=== PATIENT | female | born 1950 | race Caucasian/White ===

== ENCOUNTER 2021-03-06 08:32 | Emergency (ER) | payer MEDICARE ==
[2021-03-06] MEDS ORDERED: Proparacaine 0.5% Ophth Soln 15 ML Bottle EYEBOTH STA (09:06)
--- NOTE | 2021-03-06 09:26 | EDM.PDOC ---
ED HPI GENERAL MEDICAL PROBLEM - General Chief Complaint: Eye Problems Stated Complaint: POKED EYE WITH SCISSORS LAST NIGHT Time Seen by Provider: 03/06/21 09:22 Source of Information: Reports: Patient, RN Notes Reviewed History Limitations: Reports: No Limitations - History of Present Illness INITIAL COMMENTS - FREE TEXT/NARRATIVE: 8-year-old female presents emergency department day complaint, she may have injured herself with scissors while she was cutting this happened 16 hours prior - Related Data Allergies Allergy/AdvReac Type Severity Reaction Status Date / Time sulfamethoxazole Allergy Unknown Cannot Verified 03/06/21 08:51 [From Bactrim] Remember trimethoprim [From Bactrim] Allergy Unknown Cannot Verified 03/06/21 08:51 Remember Home Meds: Home Meds Chlorthalidone 25 mg PO DAILY 03/06/21 [History] Metoprolol Succinate [Toprol XL] 25 mg PO DAILY 03/06/21 [History] lisinopriL [Lisinopril] 80 mg PO DAILY 03/06/21 [History] Past Medical History Cardiovascular History: Reports: Hypertension [employer] History: Reports: Musculoskeletal History: Reports: Fracture Endocrine/Metabolic History: Reports: Hypothyroidism - Past Surgical History Musculoskeletal Surgical History: Reports: Knee Replacement Social & Family History - Tobacco Use Tobacco Use Status *Q: Never Tobacco User ED ROS GENERAL - Review of Systems Review Of Systems: See Below Constitutional: Reports: No Symptoms HEENT: Reports: Eye Discharge, Eye Pain. Denies: Vision Change ED EXAM GENERAL W FULL EYE - Physical Exam Exam: See Below Exam Limited By: No Limitations General Appearance: Alert, WD/WN, No Apparent Distress Eye Exam: Right Eye: Normal Inspection, Left Eye: Conjunctival Injection, Corneal Abrasion, Bilateral Eye: PERRL Eyelids: Bilateral: Normal Appearance Conjunctiva & Sclera: Right: Normal Appearance, Left: Injected Cornea Exam: Left: Corneal Abrasion, Examined with Flourescein Extraocular Movements: Bilateral: Intact Pupils: Normal Accommodation Pupillary Size: Bilateral: 3 mm Pupillary Reaction: Bilateral: Brisk Anterior Chamber: Bilateral: Normal Appearance Course - Vital Signs Last Recorded V/S: Last Vital Signs Temp 97.0 F 03/06/21 08:54 Pulse 77 03/06/21 08:54 Resp 16 03/06/21 09:02 BP 162/88 H 03/06/21 09:02 Pulse Ox 95 03/06/21 08:54 - Orders/Labs/Meds Meds: Medications Discontinued Medications Generic Name Dose Route Start Last Admin Trade Name Lucas PRN Reason Stop Dose Admin Proparacaine HCl 1 ml 03/06/21 09:06 Proparacaine 0.5% Ophth Soln 15 Ml Bottle EYEBOTH 03/06/21 09:07 NOW STA Departure - Departure Time of Disposition: 09:24 Disposition: Home, Self-Care 01 Condition: Fair Clinical Impression: Corneal abrasion, left Qualifiers: Encounter type: initial encounter Qualified Code(s): S05.02XA - Injury of conjunctiva and corneal abrasion without foreign body, left eye, initial encounter - Discharge Information Instructions: Corneal Abrasion Referrals: PCP,None [Primary Care Provider] - Additional Instructions: Please follow-up with an eye care provider here in town next 1 to 3 days for further evaluation, continue on antibiotics until evaluated by your eye care provider call return to the emergency department Sepsis Event Note (ED) - Evaluation Sepsis Screening Result: No Definite Risk - Focused Exam Vital Signs: Vital Signs Temp Pulse Resp BP Pulse Ox 03/06/21 09:02 16 162/88 H 03/06/21 08:54 97.0 F 77 17 162/88 H 95 - Assessment/Plan Plan: Assessment Acuity = acute Site and laterality = corneal abrasion left eye Etiology = trauma with the scissors Manifestations = none Location of injury = Home Lab values = none Plan Placed on gentamicin ophthalmic drops and asked her to follow-up with her eye care provider in the next 1- 3 days tetanus was in 2014 This note was dictated using [employer] voice recognition software please call with any questions on syntax or grammar.
== END 2021-03-06 09:39 | disposition home or self-care (01) ==
LOC: JP.ED 08:32
DX: S05.02XA Injury of conjunctiva and corneal abrasion without foreign body, left eye, initial encounter (principal); I10 Essential (primary) hypertension; Z88.1 Allergy status to other antibiotic agents; Z88.2 Allergy status to sulfonamides; Z79.899 Other long term (current) drug therapy; X58.XXXA Exposure to other specified factors, initial encounter
CPT/HCPCS: 99283; A9270

== ENCOUNTER 2022-10-04 06:22 | Day surgery (SDC) | payer MEDICARE ==
[2022-10-04] MEDS ORDERED: Midazolam 1 MG/ML 2 ML SDV ONE (07:18)
[2022-10-04] MEDS ORDERED: fentaNYL 50 MCG/ML SDV ONE (07:18)
[2022-10-04] MEDS ORDERED: Propofol 200 MG/20 ML SDV ONE (07:18)
[2022-10-04] MEDS ORDERED: Sodium Chloride 0.9% 1,000 ML IV SCH (07:30)
== END 2022-10-04 09:18 | disposition home or self-care (01) ==
LOC: JP.SDS 06:22
PROVIDERS: ATTEND Surgery
DX: Z12.11 Encounter for screening for malignant neoplasm of colon (principal); K63.5 Polyp of colon; K57.30 Diverticulosis of large intestine without perforation or abscess without bleeding; I10 Essential (primary) hypertension; E78.00 Pure hypercholesterolemia, unspecified; E03.9 Hypothyroidism, unspecified; Z88.2 Allergy status to sulfonamides
CPT/HCPCS: 88305; J2250; J2704; J3010; J7030

== ENCOUNTER 2023-07-31 07:28 | Day surgery (SDC) | payer MEDICARE ==
[2023-07-31] MEDS: Sodium Chloride 0.9% 10 ML Syringe FLUSH PRN (08:15)
== END 2023-07-31 09:00 | disposition home or self-care (01) ==
LOC: JP.SDS 07:28
PROVIDERS: ATTEND Ophthalmology
DX: H26.9 Unspecified cataract (principal); I10 Essential (primary) hypertension; E03.9 Hypothyroidism, unspecified
CPT/HCPCS: 66984; J3490; V2632

== ENCOUNTER 2024-03-10 17:43 | Emergency (ER) | payer MEDICARE ==
[2024-03-10] MEDS: Lidocaine 1% with EPINEPHrine 1:100,000 20 ML MDV INJECT ONE (18:27)
[2024-03-10] MEDS: Diphtheria,Pertussis(Acell),Tetanus Vaccine 0.5 ML Syringe IM ONE (19:17)
[2024-03-10] MEDS: Bacitracin Oint 1 GM U/D Packet TOP ONE (19:17)
== END 2024-03-10 19:35 | disposition home or self-care (01) ==
LOC: JP.ED 17:43
DX: S01.01XA Laceration without foreign body of scalp, initial encounter (principal); I10 Essential (primary) hypertension; E03.9 Hypothyroidism, unspecified; Z88.2 Allergy status to sulfonamides; Z23 Encounter for immunization; Z79.899 Other long term (current) drug therapy; W01.198A Fall on same level from slipping, tripping and stumbling with subsequent striking against other object, initial encounter
CPT/HCPCS: 12002; 90471; 90715; 99282-25